=== PATIENT | female | born 1955 | race African-American/Black ===

== ENCOUNTER → 2021-10-11 | Day surgery (SDC) | payer MEDICARE ==
[~2021-10-11] VITALS: Ht 162.6 cm; Wt 81.3 kg
[~2021-10-11] MED LIST: HCTZ12.5 MG PO; RHOPRESSA2.5 ML OD; TENORMIN50 MG PO; XALATAN2.5 ML OU; ZYRTEC10 MG PO
[2021-10-11 09:12] LABS: HCT 42.2 % (37.0-47.0); HGB 14.3 g/dl (12.5-16.0); MCHC 33.9 g/dL (32.0-36.0); MCV 88.5 fL (78.0-100.0); MPV 10.7 fL (6.0-9.5); RBC 4.77 M/uL (4.20-5.40)
[2021-10-11 11:34] LABS: CREATININE 0.65 mg/dL (0.51-0.95); POTASSIUM 3.8 mmol/L (3.5-5.1)
== END | disposition home or self-care (01) ==
LOC: FAS 08:03
PROVIDERS: Surgery
DX: Z12.11 Encounter for screening for malignant neoplasm of colon (principal); Q43.8 Other specified congenital malformations of intestine; I10 Essential (primary) hypertension; Z86.010 Personal history of colon polyps; Z79.899 Other long term (current) drug therapy
CPT/HCPCS: 36415; 80048; J1610; J2704; J7120